=== PATIENT | female | born 1990 | race Caucasian/White ===

== ENCOUNTER 2017-11-14 08:48 | Emergency (ER) | payer OTHER ==
[~2017-11-14] VITALS: Ht 154.9 cm; Wt 49.9 kg
[2017-11-14] MEDS ORDERED: NORCO 5-325 TA1 EACH PO (10:07)
[2017-11-14 10:16] VITALS: BP 108/70
== END 2017-11-14 10:17 | disposition home or self-care (01) ==
LOC: M.ERS 08:48
DX: M79.671 Pain in right foot (principal)